=== PATIENT | male | born 1945 | race Caucasian/White ===

== ENCOUNTER → 2016-12-28 | Outpatient (CLI) | payer MEDICARE, BC | END | disposition home or self-care (01) | LOC: PCVCCLINIC 10:30 | PROVIDERS: ATTEND Internal Medicine Cardiovascular Disease | DX: I45.10 Unspecified right bundle-branch block (principal); I10 Essential (primary) hypertension; R94.31 Abnormal electrocardiogram [ECG] [EKG]; M19.90 Unspecified osteoarthritis, unspecified site; N28.0 Ischemia and infarction of kidney; Z82.49 Family history of ischemic heart disease and other diseases of the circulatory system; Z87.891 Personal history of nicotine dependence | CPT/HCPCS: 80061; 93005; G0463 ==

== ENCOUNTER → 2017-02-01 | Outpatient (CLI) | payer MEDICARE, BC ==
--- NOTE | 2017-02-01 13:55 | PCVCIMAG ---
EXAM: BILATERAL RENAL ULTRASOUND AND BILATERAL RENAL DUPLEX INDICATION: Hypertension FINDINGS: Right kidney: Length measures 10.9 cm. No hydronephrosis or extensive renal scarring. There are a few small benign cysts in the kidney. Right renal duplex: Adequate technical quality. No sonographic evidence of renal artery stenosis. The aortic to renal artery ratio is 2.2. The renal vein is patent. Left kidney: Length measures 11.2 cm. No hydronephrosis or extensive renal scarring. Left renal duplex: Adequate technical quality. No sonographic evidence of renal artery stenosis. The aortic to renal artery ratio is 1.0. The renal vein is patent. Bladder: No obvious abnormalities. IMPRESSION: No significant renal artery stenosis. No hydronephrosis bilaterally. LOC:[id number]
--- NOTE | 2017-02-01 16:42 | PCVCIMAG ---
APPROVED REPORT Exam: Stress Echocardiogram Indication: Hypertension, Chest pain, Decreased exercise tolerence Patient Location: Echo lab Stress Nurse: Veronica Lloyd RN Status: routine Ht: 5 ft 8 in HR: 66 bpm BP: 114/80 mmHg Rhythm: RBBB Medical History Medical History: HTN Cardiac Risk Factors: HTN, FHX of CAD, Pretest Chest Pain Characteristics: No chest pain Exercise History: Physically active Procedure The patient underwent an Exercise Stress Test using the Jonh Protocol. Blood pressure, heart rate, and EKG were monitored. An Echocardiogram was performed by medical office technician in four stages in quad fashion. At peak stress, four selected images were obtained and placed side by side with resting images for comparison. Stress Test Details Stress Test: Exercise stress testing was performed using a Jonh protocol. HR Resting HR: 66 bpmMax Heart Rate (APMHR): 147 bpm Max HR Achieved: 157 bpmTarget HR (85% APMHR): 124 bpm % of APMHR: 106 Recovery HR: 82 bpm HR response to stress: Normal HR response to stress BP Resting BP: 114/80 mmHg Max BP: 170/76 mmHg Recovery BP: 140/78 mmHg ECG Resting ECG: RBBB Stress ECG: RBBB ST Change: Downsloping ST depression Maximum ST Deviation: 2.4 mm Arrhythmia: Occasional PVCs and Couplet PVCs Recovery ECG: RBBB Recovery ST Change: Ischemic, Downsloping ST depression Recovery ST Deviation: 2 mm Recovery Arrhythmia: Occasional PVcs Clinical Reason for Termination: Maximal effort, Dyspnea Stress Symptoms: none Exercise duration: 10 min 45 sec Highest Stage Achieved: Stage 4: 4.2 mph at 16% grade. Exercise capacity: 13.4 METs Overall Exercise Capacity for Age: Good Angina Score: None Stress ECG Conclusion Dawn Treadmill Score is -2.0 which is Moderate risk. Pre-Stress Echo The resting Echocardiogram showed normal left ventricular contractility with an estimated Ejection Fraction of about 55-60%. Normal wall motion in all segments on baseline images. Post-Stress Echo The stress Echocardiogram showed abnormal left ventricular contractility with an estimated Ejection Fraction of about 50-55%. The stress Echocardiogram demonstrated wall motion abnormality in the inferior, apex wall. Dilitation of the apex is seen post exercise. Hypokinesis of the inferior wall rec cardiac cath Conclusion Clinical Response: Non-ischemic Exercise Capacity: Average Stress ECG Response: Ischemic Stress Echo Images: Ischemic Positive stress echo. <Conclusion> Positive stress echo.
== END | disposition home or self-care (01) ==
LOC: PCVCIMAG 10:04
PROVIDERS: ATTEND Internal Medicine Cardiovascular Disease
DX: N28.1 Cyst of kidney, acquired (principal); I45.10 Unspecified right bundle-branch block; I49.3 Ventricular premature depolarization; I25.9 Chronic ischemic heart disease, unspecified; R94.31 Abnormal electrocardiogram [ECG] [EKG]; Z82.49 Family history of ischemic heart disease and other diseases of the circulatory system
CPT/HCPCS: 76770; 93325; 93351; 93975

== ENCOUNTER → 2017-08-20 | Outpatient (CLI) | payer MEDICARE, BC | END | disposition home or self-care (01) | LOC: PCVCCLINIC 11:30 | DX: I25.10 Atherosclerotic heart disease of native coronary artery without angina pectoris (principal); I10 Essential (primary) hypertension; I45.10 Unspecified right bundle-branch block; E78.00 Pure hypercholesterolemia, unspecified; R94.31 Abnormal electrocardiogram [ECG] [EKG]; Z82.49 Family history of ischemic heart disease and other diseases of the circulatory system; Z87.891 Personal history of nicotine dependence; Z79.899 Other long term (current) drug therapy; Z79.82 Long term (current) use of aspirin | CPT/HCPCS: 80061; 85610; 93005; G0463 ==